=== PATIENT | female | born 1965 | race Caucasian/White ===

== ENCOUNTER → 2022-12-29 | Outpatient (CLI) | payer BC ==
--- NOTE | 2022-12-31 09:02 | MM ---
Reason for Exam: Screening (asymptomatic). Patient History: Menarche at age 11. First Full-Term at age 24. Postmenopausal. Risk Values: Gabriela 5 year model risk: 1.3%. NCI Lifetime model risk: 7.7%. Tissue Density: There are scattered fibroglandular densities. Findings: Analyzed By CAD. No suspicious group of macro calcifications within either breast. No suspicious mass within the left breast. Focal asymmetry demonstrated within the right breast in the upper outer quadrant at anterior depth. Overall Assessment: Incomplete: need additional imaging evaluation, BI-RAD 0 Management: Diagnostic Mammogram of the right breast. A clinical breast exam by your physician is recommended on an annual basis and results should be correlated with mammographic findings. [facility] will attempt to contact patient to return for supplemental views and ultrasound if indicated. Electronically signed and approved by: Travis Mcfadden D.O.
== END | disposition home or self-care (01) ==
LOC: RADMAMWWP 16:19
PROVIDERS: ATTEND Family Medicine
DX: Z12.31 Encounter for screening mammogram for malignant neoplasm of breast (principal); Z78.0 Asymptomatic menopausal state
CPT/HCPCS: 77063; 77067

== ENCOUNTER → 2023-01-14 | Outpatient (CLI) | payer BC ==
--- NOTE | 2023-01-14 11:20 | MM ---
Reason for Exam: Additional evaluation requested from abnormal screening. Last screening mammogram was performed less than 1 month ago. Patient History: Menarche at age 11. First Full-Term at age 24. Postmenopausal. Risk Values: Gabriela 5 year model risk: 1.3%. NCI Lifetime model risk: 7.7%. Prior Study Comparison: 12/29/2022 Bilateral MG 3D screening mammo w/cad, [facility]. Tissue Density: Right: There are scattered fibroglandular densities. Findings: Analyzed By CAD. There is a persistent 5 mm nodular density at the approximate 8:00 position right breast 3 cm from the nipple. Ultrasound is recommended. Overall Assessment: Incomplete: need additional imaging evaluation, BI-RAD 0 Management: Diagnostic Breast Ultrasound of the right breast. A clinical breast exam by your physician is recommended on an annual basis and results should be correlated with mammographic findings. This exam should not preclude additional follow-up of suspicious palpable abnormalities. Results were given to the patient verbally at the time of exam. Electronically signed and approved by: Mor Douglas M.D. Radiologis
--- NOTE | 2023-01-14 12:22 | USB ---
Reason for Exam: Additional evaluation requested from abnormal screening. Patient History: Menarche at age 11. First Full-Term at age 24. Postmenopausal. Risk Values: Gabriela 5 year model risk: 1.3%. NCI Lifetime model risk: 7.7%. Technique: Method: Targeted. Prior Study Comparison: 12/29/2022 Bilateral MG 3D screening mammo w/cad, [facility]. Findings: The lower outer quadrant of the right breast and the retroareolar of the right breast were scanned. Indeterminate hypoechoic lesion at the right 8:00 position measuring 5 mm. Six-month follow-up is advised which is to include both ultrasound and mammography. Overall Assessment: Probably benign, BI-RAD 3 Management: Diagnostic Mammogram of the right breast in 6 months. A clinical breast exam by your physician is recommended on an annual basis and results should be correlated with mammographic findings. This exam should not preclude additional follow-up of suspicious palpable abnormalities. Results were given to the patient verbally at the time of exam. Electronically signed and approved by: Mor Douglas M.D. Radiologis
== END | disposition home or self-care (01) ==
LOC: RADMAMWWP 10:26
PROVIDERS: ATTEND Family Medicine
DX: R92.8 Other abnormal and inconclusive findings on diagnostic imaging of breast (principal); N64.89 Other specified disorders of breast; Z78.0 Asymptomatic menopausal state
CPT/HCPCS: 77061; 77065

== ENCOUNTER → 2023-01-17 | Outpatient (CLI) | payer BC ==
--- NOTE | 2023-01-17 07:30 | MR ---
MR MRCP INDICATION: Patient age:Female; 57 years old; Reason for study: K83.8 common bile duct dilation; [facility]. COMPARISON: CT abdomen and pelvis 12/20/2022. TECHNIQUE: Multi planar, T2-weighted imaging with and without fat saturation and chemical shift imag ing was performed of the abdomen. Then, heavily T2 weighted imaging (half-Fourier acquisition single- shot turbo spin-echo) was utilized in order to study the biliary system. Maximum intensity projectio n images were reconstructed from the original data of the biliary tree on a separate workstation. No Gadolinium given. FINDINGS: MRCP: The intrahepatic ducts have a normal appearance. The common bile duct measures up to 10 mm in size. There is smooth tapering of the common bile duct into the ampulla without filling defect or ob structing mass lesion. The common hepatic duct measures 6 mm in size. The pancreatic duct is normal. The gallbladder appears unremarkable. Abdomen: The spleen, adrenal glands, kidneys, and pancreas have a normal noncontrast appearance. Mild hepatic steatosis demonstrated with dropout of signal on the out of phase imaging. IMPRESSION: 1. Mild common bile duct dilatation with smooth tapering to the ampulla. No filling defect or obstru cting mass lesion. No intrahepatic biliary ductal dilatation. 2. Mild hepatic steatosis.
== END | disposition home or self-care (01) ==
LOC: RADMRIMAIN 06:14
PROVIDERS: ATTEND Family Medicine
DX: K76.0 Fatty (change of) liver, not elsewhere classified (principal); K83.8 Other specified diseases of biliary tract
CPT/HCPCS: 74181

== ENCOUNTER → 2023-08-23 | Outpatient (CLI) | payer BC ==
--- NOTE | 2023-08-23 09:52 | MM ---
Reason for Exam: Follow-up at short interval from prior study. Last screening mammogram was performed 8 month(s) ago. Patient History: Menarche at age 11. First Full-Term at age 24. Postmenopausal. Risk Values: Gabriela 5 year model risk: 1.3%. NCI Lifetime model risk: 7.7%. Prior Study Comparison: 12/29/2022 Bilateral MG 3D screening mammo w/cad, [facility]. 01/14/2023 Right MG 3D work up w/cad RT, [facility]. Tissue Density: Right: There are scattered fibroglandular densities. Findings: Analyzed By CAD. Persistent 5 mm nodular density at the 8:00 position in the right breast. No new suspicious masses. No worrisome calcifications. Overall Assessment: Incomplete: need additional imaging evaluation, BI-RAD 0 Management: Diagnostic Breast Ultrasound of the right breast. A clinical breast exam by your physician is recommended on an annual basis and results should be correlated with mammographic findings. This exam should not preclude additional follow-up of suspicious palpable abnormalities. Results were given to the patient verbally at the time of exam. Note on Gabriela scores and lifetime risk: 1. A Gabriela score greater than 3% is considered moderate risk. If this is the case, consider specialist referral to assess eligibility for a risk reducing agent. If overall lifetime risk for the development of breast cancer is 20% or higher, the patient may qualify for future screening with alternating mammogram and breast MRI. Electronically signed and approved by: Travis Mcfadden D.O.
--- NOTE | 2023-08-23 10:08 | USB ---
Reason for Exam: Follow-up at short interval from prior study. Patient History: Menarche at age 11. First Full-Term at age 24. Postmenopausal. Risk Values: Gabriela 5 year model risk: 1.3%. NCI Lifetime model risk: 7.7%. Technique: Method: Targeted. Prior Study Comparison: 12/29/2022 Bilateral MG 3D screening mammo w/cad, [facility]. 01/14/2023 Right MG 3D work up w/cad RT, [facility]. Findings: The lower outer quadrant of the right breast and the retroareolar of the right breast were scanned. Ultrasound of the right breast from 6-9 o'clock was performed additional evaluation the nipple. Stable hypoechoic lesion at 8:00 3 cm from nipple measuring 0.3 x 0.4 x 0.2 cm. No internal color flow. Most consistent with a cluster of cysts. Overall Assessment: Benign, BI-RAD 2 Management: Screening Mammogram of both breasts in 6 months. A clinical breast exam by your physician is recommended on an annual basis and results should be correlated with mammographic findings. This exam should not preclude additional follow-up of suspicious palpable abnormalities. Results were given to the patient verbally at the time of exam. Electronically signed and approved by: Travis Mcfadden D.O.
== END | disposition home or self-care (01) ==
LOC: RADMAMWWP 09:31
PROVIDERS: ATTEND Family Medicine
DX: R92.322 Mammographic fibroglandular density, left breast (principal); Z78.0 Asymptomatic menopausal state
CPT/HCPCS: 77061; 77065

== ENCOUNTER 2023-12-16 09:16 | Inpatient (IN) | payer BC ==
[2023-12-16] MEDS: methylPREDNISolone SOD SUCCI 125 MG/2 ML VIAL IV STA (10:31)
[2023-12-16] MEDS: SODIUM CHLORIDE 0.9% 1,000 ML IV ONE ×2 (10:31→17:57)
[2023-12-16 10:33] LABS: Basophils % (A) 1 %; Eosinophils # (A) 0.1 k/uL (0-0.7); Eosinophils % (A) 1 %; HCT 41.4 % (34.0-46.0); Lymphocytes # (A) 0.6 k/uL (1.0-4.8); Lymphocytes % (A) 7 %; MCH 32.6 pg (25.0-35.0); MCHC 33.8 g/dL (31.0-37.0); MCV 96.4 fL (80.0-100.0); Monocytes # (A) 0.5 k/uL (0-1.0); Monocytes % (A) 5 %; Neutrophils # (A) 7.8 k/uL (1.3-7.7); Neutrophils % (A) 85 %; Platelet Count 163 k/uL (150-450); RBC 4.29 m/uL (3.80-5.40); RDW 12.8 % (11.5-15.5); WBC 9.2 k/uL (3.8-10.6)
--- NOTE | 2023-12-16 11:12 | XR ---
EXAMINATION TYPE: XR chest 2V DATE OF EXAM: 12/16/2023 10:50 AM CLINICAL INDICATION:Female, 58 years old with history of sob; COMPARISON: Chest radiographs from 02/16/2016 TECHNIQUE: XR chest 2V Frontal and lateral views of the chest. FINDINGS: Lungs/Pleura: There is no evidence of pleural effusion, focal consolidation, or pneumothorax. Pulmonary vascularity: Unremarkable. Heart/mediastinum: Cardiomediastinal silhouette is unremarkable. Musculoskeletal: No acute osseous pathology. IMPRESSION: No acute cardiopulmonary disease/process.
[2023-12-16] MEDS: IPRATROPIUM-ALBUTEROL 3 ML NEB INHALATION STA (11:54)
[2023-12-16 12:07] LABS: ALT 27 U/L (4-34); AST 39 U/L (14-36); African American GFR (CKD) 12 (>60 ml/min/1.73 sqM); Albumin 3.8 g/dL (3.5-5.0); Alkaline Phosphatase 56 U/L (38-126); Anion Gap 13 mmol/L; Blood Urea Nitrogen 61 mg/dL (7-17); Calcium 7.9 mg/dL (8.4-10.2); Carbon Dioxide 23 mmol/L (22-30); Chloride 102 mmol/L (98-107); Glucose 98 mg/dL (74-99); Non-African American GFR(CKD) 10 (>60 ml/min/1.73 sqM); Potassium 3.3 mmol/L (3.5-5.1); Sodium 138 mmol/L (137-145); Total Bilirubin 0.8 mg/dL (0.2-1.3); Total Protein 6.3 g/dL (6.3-8.2)
[2023-12-16] MEDS ORDERED: ACETAMINOPHEN TAB 325 MG TAB PO PRN (12:30)
[2023-12-16] MEDS ORDERED: ONDANSETRON 4 MG/2 ML VIAL IVP PRN (12:30)
[2023-12-16] MEDS ORDERED: NALOXONE 0.4 MG/ML 1 ML VIAL IV PRN (12:30)
--- NOTE | 2023-12-16 12:30 | ED ---
General Adult HPI - General Chief complaint: Shortness of Breath Stated complaint: YANCY Time Seen by Provider: 12/16/23 09:25 Source: patient, RN notes reviewed Mode of arrival: ambulatory Limitations: no limitations - History of Present Illness Initial comments: 58-year-old female presents emergency department chief complaint shortness of breath, fevers chills and bodyaches. Patient states she has been sick for several days. Patient states her significant other was positive for influenza A. Patient states she is a daily smoker. Patient states that she never been diagnosed with COPD. Denies any diarrhea but states that she has been nauseous and some vomiting. She has not been eating drinking well. - Related Data Home Medications Medication Instructions Recorded Confirmed Chlorthalidone [Hygroton] 25 mg PO DAILY 12/16/23 12/16/23 Losartan Potassium [Cozaar] 100 mg PO DAILY 12/16/23 12/16/23 Rosuvastatin [Crestor] 20 mg PO DAILY 12/16/23 12/16/23 Allergies Allergy/AdvReac Type Severity Reaction Status Date / Time No Known Allergies Allergy Verified 12/16/23 12:48 Review of Systems ROS Statement: Those systems with pertinent positive or pertinent negative responses have been documented in the HPI. ROS Other: All systems not noted in ROS Statement are negative. Past Medical History Past Medical History: Hyperlipidemia, Hypertension History of Any Multi-Drug Resistant Organisms: None Reported Past Surgical History: No Surgical Hx Reported Past Psychological History: No Psychological Hx Reported Smoking Status: Current every day smoker Past Alcohol Use History: Occasional Past Drug Use History: Marijuana General Exam Limitations: no limitations General appearance: alert, in no apparent distress Head exam: Present: atraumatic, normocephalic, normal inspection Eye exam: Present: normal appearance, PERRL, EOMI. Absent: scleral icterus, conjunctival injection, periorbital swelling ENT exam: Present: normal exam, normal oropharynx, mucous membranes moist Neck exam: Present: normal inspection, full ROM. Absent: tenderness, m eningismus, lymphadenopathy Respiratory exam: Present: wheezes. Absent: normal lung sounds bilaterally, respiratory distress, rales, rhonchi, stridor Cardiovascular Exam: Present: regular rate, normal rhythm, normal heart sounds. Absent: systolic murmur, diastolic murmur, rubs, gallop, clicks GI/Abdominal exam: Present: soft, normal bowel sounds. Absent: distended, tenderness, guarding, rebound, rigid Course Vital Signs 12/16/23 12/16/23 12/16/23 09:30 09:35 10:16 Temperature 98.7 F 98.3 F Pulse Rate 98 92 Respiratory 24 20 18 Rate Blood Pressure 88/56 118/72 O2 Sat by Pulse 94 L 91 L Oximetry 12/16/23 12/16/23 11:56 12:13 Temperature Pulse Rate 96 100 Respiratory Rate Blood Pressure O2 Sat by Pulse Oximetry EKG Findings - EKG Comments: EKG Findings:: EKG performed at 9: 41 sinus rhythm rate of 93 DE 148 QRS 104 QT/QTc 347/397 - EKG Results: EKG: interpreted by ARIADNED Medical Decision Making - Medical Decision Making Was pt. sent in by a medical professional or institution (, PA, DISTRICT LOSS PREVENTION MANAGER, urgent care, hospital, or usp...) When possible be specific @ -No Did you speak to anyone other than the patient for history (EMS, parent, family, police, friend...)? What history was obtained from this source @ -No Did you review nursing and triage notes (agree or disagree)? Why? @ -I reviewed and agree with nursing and triage notes Were old charts reviewed (outside hosp., previous admission, EMS record, old EKG, old radiological studies, urgent care reports/EKG's, usp records)? Report findings @ -[Reviewed prior laboratory studies Differential Diagnosis (chest pain, altered mental status, abdominal pain women, abdominal pain men, vaginal bleeding, weakness, fever, dyspnea, syncope, headache, dizziness, GI bleed, back pain, seizure, CVA, palpatations, mental health, musculoskeletal)? @ -No differential URI EKG interpreted by me (3pts min.). @ -[As above X-rays interpreted by me (1pt min.). @ -[Chest x-ray shows no evidence of pneumonia, mild COPD changes CT interpreted by me (1pt min.). @ -None done U/S interpreted by me (1pt. min.). @ -None done What testing was considered but not performed or refused? (CT, X-rays, U/S, labs)? Why? @ -None What meds were considered but not given or refused? Why? @ -None Did you discuss the management of the patient with other professionals (professionals i.e. , PA, DISTRICT LOSS PREVENTION MANAGER, lab, RT, psych nurse, social media campaign manager, specialty molder, teacher, emergency communications officer, social work case manager)? Give summary @ -Dr. Maddox for admission Was smoking cessation discussed for >3mins.? @ -[I discussed smoking cessation for greater than 3 minutes. The risk of smoking were discussed with the patient including but not limited to risks of cancer, stroke, coronary artery disease and COPD. Also discussed with patient were multiple methods of quitting smoking. Lastly we discussed the financial cost of smoking. Was critical care preformed (if so, how long)? @ -No Were there social determinants of health that impacted care today? How? (Homelessness, low income, unemployed, alcoholism, drug addiction, transportation, low edu. Level, literacy, decrease access to med. care, detention, rehab)? @ -No Was there de-escalation of care discussed even if they declined (Discuss DNR or withdrawal of care, Hospice)? DNR status @ -No What co-morbidities impacted this encounter? (DM, HTN, Smoking, COPD, CAD, Cancer, CVA, ARF, Chemo, Hep., AIDS, mental health diagnosis, sleep apnea, morbid obesity)? @ -Smoking, COPD Was patient admitted / discharged? Hospital course, mention meds given and route, prescriptions, significant lab abnormalities, going to OR and other pertinent info. @ -[Admitted patient is found to be in acute renal failure with creatinine over 4 patient has no history of this for our records. Patient also found to be hypoxic, most likely has underlying COPD with acute exacerbation. Patient was started on steroids, breathing treatments left consult to pulmonary and nephrology Undiagnosed new problem with uncertain prognosis? @ -No Drug Therapy requiring intensive monitoring for toxicity (Heparin, Nitro, Insulin, Cardizem)? @ -No Were any procedures done? @ -No Diagnosis/symptom? @ -[Acute renal failure, COPD exacerbation, influenza Acute, or Chronic, or Acute on Chronic? @ -Acute Uncomplicated (without systemic symptoms) or Complicated (systemic symptoms)? @ -[Complicated Side effects of treatment? @ -No Exacerbation, Progression, or Severe Exacerbation? @ -COPD exacerbation Poses a threat to life or bodily function? How? (Chest pain, [place], [place], pneumonia, PE, COPD, DKA, ARF, appy, cholecystitis, CVA, Diverticulitis, Homicidal, Suicidal, threat to staff... and all critical care pts) @ -Yes renal failure, hypoxia - Lab Data Result diagrams: 12/16/23 10:12 12/16/23 11:42 Lab Results 12/16/23 12/16/23 12/16/23 Range/Units 10:12 10:12 11:42 WBC 9.2 (3.8-10.6) k/uL RBC 4.29 (3.80-5.40) m/uL Hgb 14.0 (11.4-16.0) gm/dL Hct 41.4 (34.0-46.0) % MCV 96.4 (80.0-100.0) fL MCH 32.6 (25.0-35.0) pg MCHC 33.8 (31.0-37.0) g/dL RDW 12.8 (11.5-15.5) % Plt Count 163 (150-450) k/uL MPV 9.0 Neutrophils % 85 % Lymphocytes % 7 % Monocytes % 5 % Eosinophils % 1 % Basophils % 1 % Neutrophils # 7.8 H (1.3-7.7) k/uL Lymphocytes # 0.6 L (1.0-4.8) k/uL Monocytes # 0.5 (0-1.0) k/uL Eosinophils # 0.1 (0-0.7) k/uL Basophils # 0.0 (0-0.2) k/uL Sodium 138 (137-145) mmol/L Potassium 3.3 L (3.5-5.1) mmol/L Chloride 102 (98-107) mmol/L Carbon Dioxide 23 (22-30) mmol/L Anion Gap 13 mmol/L BUN 61 H (7-17) mg/dL Creatinine 4.39 H (0.52-1.04) mg/dL Est GFR (CKD-EPI)AfAm 12 (>60 ml/min/1.73 sqM) Est GFR (CKD-EPI)NonAf 10 (>60 ml/min/1.73 sqM) Glucose 98 (74-99) mg/dL Calcium 7.9 L (8.4-10.2) mg/dL Total Bilirubin 0.8 (0.2-1.3) mg/dL AST 39 H (14-36) U/L ALT 27 (4-34) U/L Alkaline Phosphatase 56 (38-126) U/L Total Protein 6.3 (6.3-8.2) g/dL Albumin 3.8 (3.5-5.0) g/dL Influenza Type A (PCR) Detected A (Not Detectd) Influenza Type B (PCR) Not Detected (Not Detectd) RSV (PCR) Not Detected (Not Detectd) SARS-CoV-2 (PCR) Not Detected (Not Detectd) Disposition Clinical Impression: Influenza A, Hypoxia, COPD (chronic obstructive pulmonary disease), Acute renal failure Disposition: ADMITTED IP TO THIS HOSP Condition: Poor Referrals: Josep Maddox MD [Primary Care Provider] - 1-2 days Time of Disposition: 12:01
[2023-12-16] MEDS: SODIUM CHLORIDE 0.9% 1,000 ML IV SCH (12:32)
[2023-12-16] MEDS ORDERED: IPRATROPIUM-ALBUTEROL 3 ML NEB INHALATION PRN (12:32)
[2023-12-16] MEDS ORDERED: IPRATROPIUM-ALBUTEROL 3 ML NEB INHALATION SCH (16:00)
[2023-12-16] MEDS: IPRATROPIUM-ALBUTEROL 3 ML NEB INHALATION SCH (17:11)
[2023-12-16] MEDS: methylPREDNISolone SOD SUCCI 125 MG/2 ML VIAL IV SCH (17:57)
--- NOTE | 2023-12-16 18:14 | US ---
EXAMINATION TYPE: US kidneys/renal and bladder DATE OF EXAM: 12/16/2023 COMPARISON: CT CLINICAL INDICATION: Female, 58 years old with history of MARY; MARY EXAM MEASUREMENTS: Right Kidney: 10.1 x 4.1 x 5.3 cm Left Kidney: 9.7 x 4.6 x 4.2 cm Right Kidney: No evidence of hydro . Cortical medullary differentiation is maintained. Left Kidney: No evidence of hydro, lower pole gassed out. Cortical medullary differentiation is maint ained Bladder: Not fully distended to evaluate There is no evidence for hydronephrosis at this point in time. No nephrolithiasis is seen. No ghislaine s are identified. The urinary bladder is anechoic. Bilateral ureteral jets are seen. IMPRESSION: No evidence for obstructive uropathy.
--- NOTE | 2023-12-16 19:08 | P.CNPUL ---
History of Present Illness Consult date: 12/16/23 Reason for consult: dyspnea, COPD Chief complaint: MARY History of present illness: Pleasant 78-year-old female patient presented emergency department because of worsening shortness of breath. The patient was feeling ill for the past 4 to 5 days. She had diminished oral intake. Denied having any nausea or emesis. No diarrhea. However, she had marked diminishment in her oral intake and she has not been eating and drinking well. The patient was feeling sick, tired, and she was having bodyaches. She was feeling feverish in addition. She has also noted some diminished urine output. No falls. No recent antibiotic intake. In the emergency, the patient was found to be quite short of breath and she was having increased chest tightness and wheezing and bronchospasm consistent with COPD exacerbation. She is a chronic smoker. She also tested positive for influenza A. She also was noted to have an acute kidney injury and the patient's creatinine was at 4.3 from a normal baseline approximately a year ago. Her BUN was 61 and the patient's potassium level was at 3.3 with a sodium level of 138. The white cell count is at 9.2 with a hemoglobin of 14 and a platelet count of 163. The rest of the viral panel was negative. LFTs are within normal limits. The chest x-ray was consistent with COPD without any acute abnormalities. The patient Emergency Department was given a liter of IV fluid and the following that she was placed on normal saline at rate of 75 cc an hour. I started the patient on DuoNeb otherwise she was [id number] and IV Solu-Medrol 60 mg every 6 hours. The patient will also be started on Tamiflu. No altered mentation. No pleurisy. No hemoptysis. No angina or palpitations. Her EKG showing a normal sinus rhythm. No acute ST segment elevation or depression. Review of Systems Constitutional: Reports fatigue, Reports poor appetite, Reports weakness Eyes: denies as per HPI, denies blurred vision, denies bulging eye, denies decreased vision, denies diplopia, denies discharge, denies dry eye, denies ir ritation, denies itching, denies pain, denies photophobia, denies loss of peripheral vision, denies loss of vision, denies tunnel vision/blind spots Ears: deny: decreased hearing, ear discharge, earache, tinnitus Ears, nose, mouth and throat: Reports as per HPI Breasts: absent: as per HPI, change in shape, gynecomastia, masses, nipple discharge, pain, skin changes, swelling Cardiovascular: Reports as per HPI, Reports decreased exercise tolerance, Reports dyspnea on exertion, Reports shortness of breath Respiratory: Reports cough with sputum, Reports dyspnea, Reports wheezing Gastrointestinal: Reports as per HPI, Reports loss of appetite Genitourinary: Reports as per HPI Menstruation: Reports as per HPI Musculoskeletal: Reports as per HPI Musculoskeletal: absent: ankle pain, ankle stiffness, ankle swelling, as per HPI, elbow pain, elbow stiffness, elbow swelling, foot pain, foot stiffness, foot swelling, hand pain, hand stiffness, hand swelling, hip pain, hip stiffness, hip swelling, knee pain, knee stiffness, knee swelling, shoulder p ain, shoulder stiffness, shoulder swelling, wrist pain, wrist stiffness, wrist swelling Integumentary: Reports as per HPI Neurological: Reports as per HPI Psychiatric: Reports as per HPI Endocrine: Reports as per HPI Hematologic/Lymphatic: Reports as per HPI Allergic/Immunologic: Reports as per HPI Past Medical History Past Medical History: Hyperlipidemia, Hypertension History of Any Multi-Drug Resistant Organisms: None Reported Past Surgical History: No Surgical Hx Reported Past Psychological History: No Psychological Hx Reported Smoking Status: Current every day smoker Past Alcohol Use History: Occasional Past Drug Use History: Marijuana Medications and Allergies Home Medications Medication Instructions Recorded Confirmed Type Chlorthalidone [Hygroton] 25 mg PO DAILY 12/16/23 12/16/23 History Losartan Potassium [Cozaar] 100 mg PO DAILY 12/16/23 12/16/23 History Rosuvastatin [Crestor] 20 mg PO DAILY 12/16/23 12/16/23 History Allergies Allergy/AdvReac Type Severity Reaction Status Date / Time No Known Allergies Allergy Verified 12/16/23 12:48 Physical Exam Vitals: Vital Signs Temp Pulse Resp BP Pulse Ox 12/16/23 17:12 85 12/16/23 15:54 85 18 103/66 12/16/23 13:00 90 18 97/67 96 12/16/23 12:13 100 12/16/23 11:56 96 12/16/23 10:16 18 12/16/23 09:35 98.3 F 92 20 118/72 91 L 12/16/23 09:30 98.7 F 98 24 88/56 94 L Intake and Output 12/16/23 12/16/23 12/16/23 06:59 14:59 22:59 Other: Weight 83.915 kg General appearance the patient is a mild degree of respiratory distress that she is, comfortable.She is currently on oxygen at 2 L/min nasal cannula with a pulse ox of 96%. Head exam was generally normal. There was no scleral icterus or corneal arcus. Mucous membranes were moist. Neck was supple and without jugular venous distension, thyromegaly, or carotid bruits. Carotids were easily palpable bilaterally. There was no adenopathy. Lung sounds are diminished bilaterally and the patient diffuse expiratory wheezes throughout the lung motta bilaterally Cardiac exam revealed the PMI to be normally situated and sized. The rhythm was regular and no extrasystoles were noted during several minutes of auscultation. The first and second heart sounds were normal and physiologic splitting of the second heart sound was noted. There were no murmurs, rubs, clicks, or gallops. Abdominal exam revealed normal bowel sounds. The abdomen was soft, non-tender, and without masses, organomegaly, or appreciable enlargement of the abdominal aorta. Examination of the extremities revealed easily palpable radial, femoral and pedal pulses. There was no cyanosis, clubbing or edema. Examination of the skin revealed no evidence of significant rashes, suspicious appearing nevi or other concerning lesions. Neurologically, the patient is awake and alert and the patient does not have any focal neurological deficit. Cranial nerves are essentially intact. Results - Laboratory Findings CBC and BMP: 12/16/23 10:12 12/16/23 11:42 ABG WBC 9.2 k/uL (3.8-10.6) 12/16/23 10:12 RBC 4.29 m/uL (3.80-5.40) 12/16/23 10:12 Hgb 14.0 gm/dL (11.4-16.0) 12/16/23 10:12 Hct 41.4 % (34.0-46.0) 12/16/23 10:12 MCV 96.4 fL (80.0-100.0) 12/16/23 10:12 MCH 32.6 pg (25.0-35.0) 12/16/23 10:12 MCHC 33.8 g/dL (31.0-37.0) 12/16/23 10:12 RDW 12.8 % (11.5-15.5) 12/16/23 10:12 Plt Count 163 k/uL (150-450) 12/16/23 10:12 MPV 9.0 12/16/23 10:12 Neutrophils % 85 % 12/16/23 10:12 Lymphocytes % 7 % 12/16/23 10:12 Monocytes % 5 % 12/16/23 10:12 Eosinophils % 1 % 12/16/23 10:12 Basophils % 1 % 12/16/23 10:12 Neutrophils # 7.8 k/uL (1.3-7.7) H 12/16/23 10:12 Lymphocytes # 0.6 k/uL (1.0-4.8) L 12/16/23 10:12 Monocytes # 0.5 k/uL (0-1.0) 12/16/23 10:12 Eosinophils # 0.1 k/uL (0-0.7) 12/16/23 10:12 Basophils # 0.0 k/uL (0-0.2) 12/16/23 10:12 Sodium 138 mmol/L (137-145) 12/16/23 11:42 Potassium 3.3 mmol/L (3.5-5.1) L 12/16/23 11:42 Chloride 102 mmol/L (98-107) 12/16/23 11:42 Carbon Dioxide 23 mmol/L (22-30) 12/16/23 11:42 Anion Gap 13 mmol/L 12/16/23 11:42 BUN 61 mg/dL (7-17) H 12/16/23 11:42 Creatinine 4.39 mg/dL (0.52-1.04) H 12/16/23 11:42 Est GFR (CKD-EPI)AfAm 12 (>60 ml/min/1.73 sqM) 12/16/23 11:42 Est GFR (CKD-EPI)NonAf 10 (>60 ml/min/1.73 sqM) 12/16/23 11:42 Glucose 98 mg/dL (74-99) 12/16/23 11:42 Calcium 7.9 mg/dL (8.4-10.2) L 12/16/23 11:42 Total Bilirubin 0.8 mg/dL (0.2-1.3) 12/16/23 11:42 AST 39 U/L (14-36) H 12/16/23 11:42 ALT 27 U/L (4-34) 12/16/23 11:42 Alkaline Phosphatase 56 U/L (38-126) 12/16/23 11:42 Total Protein 6.3 g/dL (6.3-8.2) 12/16/23 11:42 Albumin 3.8 g/dL (3.5-5.0) 12/16/23 11:42 Influenza Type A (PCR) Detected (Not Detectd) A 12/16/23 10:12 Influenza Type B (PCR) Not Detected (Not Detectd) 12/16/23 10:12 RSV (PCR) Not Detected (Not Detectd) 12/16/23 10:12 SARS-CoV-2 (PCR) Not Detected (Not Detectd) 12/16/23 10:12 Abnormal lab findings: Abnormal Labs 12/16/23 12/16/23 12/16/23 10:12 10:12 11:42 Neutrophils # 7.8 H Lymphocytes # 0.6 L Potassium 3.3 L BUN 61 H Creatinine 4.39 H Calcium 7.9 L AST 39 H Influenza Type A (PCR) Detected A - Diagnostic Findings Chest x-ray: image reviewed Assessment and Plan Plan: Acute exacerbation of COPD with secondary shortness of breath. The patient is actively bronchospastic and wheezy. Acute hypoxic respiratory failure patient is currently on 2 L of oxygen by nasal cannula Acute influenza syndrome, symptomatic for the past 3 to 4 days Acute kidney injury possibly related to intravascular volume depletion and decreased oral intake. The patient also had mentioned diminished urine output. Note that the patient was taking diuretics in the form of chlorthalidone on o utpatient basis and the patient was also maintained on losartan. Hypertension Hyperlipidemia History of smoking Plan Will give the patient an additional liter of saline in the emergency department. Continue maintenance fluids of normal saline at rate of 75 cc an hour Hold diuretics Check UA Will check kidney ultrasound DuoNeb nebs [id number] IV Solu-Medrol Tamiflu Nephrology consultation Monitor renal function Will continue to follow
[2023-12-16] MEDS: OSELTAMIVIR 60 MG/10 ML ORAL SYRINGE PO SCH (22:11)
[2023-12-16] MEDS: HEPARIN SODIUM,PORCINE 5,000 UNIT/ML 1 ML VIAL SQ SCH (22:11)
[2023-12-16 22:42] LABS: Appearance,Urine Cloudy (Clear); Bacteria,Urine Rare /hpf; Bilirubin,Urine Negative (Negative); Blood,Urine Small (Negative); Color,Urine Colorless; Glucose,Urine (UA) Negative (Negative); Ketones,Urine Negative (Negative); Leukocyte Esterase,Urine Negative (Negative); Mucus,Urine Rare /hpf; Nitrite,Urine Negative (Negative); PH, Urine 5.5 (5.0-8.0); Protein,Urine Trace (Negative); RBC,Urine 3 /hpf (0-5); Specific Gravity,Urine 1.011 (1.001-1.035); Squamous Epithelial Cell,Urine 6 /hpf (0-4); Urobilinogen,Urine <2.0 mg/dL (<2.0); WBC,Urine 5 /hpf (0-5)
--- NOTE | 2023-12-17 11:55 | P.NPCON ---
History of Present Illness - Reason for Consult acute renal failure - History of Present Illness Patient is a 58-year-old female with history of hypertension and hyperlipidemia. She is admitted to the hospital with complaints of worsening shortness of breath, increased weakness and fatigue. No significant nausea or vomiting. Patient has had significant body aches. She tested positive for influenza A. No previous history of kidney diseases. Blood pressure was low with systolic in the 80s on initial admission. Patient is maintained on losartan and chlorthalidone at home. Currently maintained on IV fluids. Blood pressure has improved with systolic at 106 currently. Patient states she has voided. Maintained on 3 L of oxygen via nasal cannula. Review of Systems As per HPI Past Medical History Past Medical History: Hyperlipidemia, Hypertension History of Any Multi-Drug Resistant Organisms: None Reported Past Surgical History: No Surgical Hx Reported Past Psychological History: No Psychological Hx Reported Smoking Status: Current every day smoker Past Alcohol Use History: Occasional Past Drug Use History: Marijuana Medications and Allergies Home Medications Medication Instructions Recorded Confirmed Type Chlorthalidone [Hygroton] 25 mg PO DAILY 12/16/23 12/16/23 History Losartan Potassium [Cozaar] 100 mg PO DAILY 12/16/23 12/16/23 History Rosuvastatin [Crestor] 20 mg PO DAILY 12/16/23 12/16/23 History Allergies Allergy/AdvReac Type Severity Reaction Status Date / Time No Known Allergies Allergy Verified 12/16/23 12:48 Physical Exam Vitals: Vital Signs Temp Pulse Pulse Resp BP BP Pulse Ox 12/17/23 08:35 98.1 F 86 16 106/76 97 12/17/23 08:23 78 12/17/23 06:25 98.1 F 82 18 119/76 99 12/16/23 22:12 98.3 F 93 20 95/66 95 12/16/23 20:43 80 12/16/23 20:31 75 12/16/23 17:21 84 12/16/23 17:12 85 12/16/23 15:54 85 18 103/66 12/16/23 13:00 90 18 97/67 96 12/16/23 12:13 100 12/16/23 11:56 96 Patient is awake, comfortable, no acute distress Examination of the heart S1 and S2 Examination of the lungs bilateral breath sounds are heard Abdomen is soft nontender Examination of the lower extremities shows no evidence of edema [place] exam grossly intact Results - Lab Results Most recent lab results Calcium 7.9 mg/dL (8.4-10.2) L 12/16/23 11:42 12/16/23 10:12 12/16/23 11:42 Assessment and Plan Assessment: 1. Acute kidney injury, ATN currently nonoliguric. Etiology is hypotension and underlying infection. Rule out urine retention. Also component of hypovolemia. Check urine analysis. Angiotensin receptor blockers on hold along with diuretics. 2. Hypertension with blood pressure currently low. Losartan and chlorthalidone on hold 3. Influenza A infection 4. Acute exacerbation of COPD 5. Acute hypoxic respiratory failure maintained on oxygen via nasal cannula Plan: Continue with IV fluids Check bladder scan Repeat labs in a.m. Continue to hold losartan and chlorthalidone. Check UA Check ultrasound of the kidneys Thank you for the consultation. We will continue to follow the patient with you during her hospitalization.
--- NOTE | 2023-12-17 12:53 | P.PN ---
Subjective Progress Note Date: 12/17/23 Pleasant 78-year-old female patient presented emergency department because of worsening shortness of breath. The patient was feeling ill for the past 4 to 5 days. She had diminished oral intake. Denied having any nausea or emesis. No diarrhea. However, she had marked diminishment in her oral intake and she has not been eating and drinking well. The patient was feeling sick, tired, and she was having bodyaches. She was feeling feverish in addition. She has also noted some diminished urine output. No falls. No recent antibiotic intake. In the emergency, the patient was found to be quite short of breath and she was having increased chest tightness and wheezing and bronchospasm consistent with COPD exacerbation. She is a chronic smoker. She also tested positive for influenza A. She also was noted to have an acute kidney injury and the patient's creatinine was at 4.3 from a normal baseline approximately a year ago. Her BUN was 61 and the patient's potassium level was at 3.3 with a sodium level of 138. The white cell count is at 9.2 with a hemoglobin of 14 and a platelet count of 163. The rest of the viral panel was negative. LFTs are within normal limits. The chest x-ray was consistent with COPD without any acute abnormalities. The patient Emergency Department was given a liter of IV fluid and the following that she was placed on normal saline at rate of 75 cc an hour. I started the patient on DuoNeb otherwise she was [id number] and IV Solu-Medrol 60 mg every 6 hours. The patient will also be started on Tamiflu. No altered mentation. No pleurisy. No hemoptysis. No angina or palpitations. Her EKG showing a normal sinus rhythm. No acute ST segment elevation or depression. On today's evaluation of 12/17/2023, the patient is feeling well and she is less short of breath bronchospastic and wheezy on today's evaluation. UA was essentially nonsignificant. She remains on IV fluids. She is voiding. No fever or chills. Ultrasound the kidneys was also done and showed no evidence of any hydronephrosis. Nephrology on the case. Awaiting follow-up labs from today. She remains on oxygen at 3 L with a pulse ox of 95%. Objective - Vital Signs Vital signs: Vital Signs Temp 98.1 F 12/17/23 08:35 Pulse 86 03/02/24 08:35 Resp 16 12/17/23 08:35 BP 106/76 12/17/23 08:35 Pulse Ox 97 12/17/23 08:35 FiO2 Intake & Output 12/16/23 12/17/23 12/17/23 18:59 06:59 18:59 Weight 83.915 kg - Exam General appearance the patient is a mild degree of respiratory distress that she is, comfortable.She is currently on oxygen at 2 L/min nasal cannula with a pulse ox of 96%. Head exam was generally normal. There was no scleral icterus or corneal arcus. Mucous membranes were moist. Neck was supple and without jugular venous distension, thyromegaly, or carotid bruits. Carotids were easily palpable bilaterally. There was no adenopathy. Lung sounds are diminished bilaterally and the patient diffuse expiratory wheezes throughout the lung motta bilaterally Cardiac exam revealed the PMI to be normally situated and sized. The rhythm was regular and no extrasystoles were noted during several minutes of auscultation. The first and second heart sounds were normal and physiologic splitting of the second heart sound was noted. There were no murmurs, rubs, clicks, or gallops. Abdominal exam revealed normal bowel sounds. The abdomen was soft, non-tender, and without masses, organomegaly, or appreciable enlargement of the abdominal aorta. Examination of the extremities revealed easily palpable radial, femoral and ped al pulses. There was no cyanosis, clubbing or edema. Examination of the skin revealed no evidence of significant rashes, suspicious appearing nevi or other concerning lesions. Neurologically, the patient is awake and alert and the patient does not have any focal neurological deficit. Cranial nerves are essentially intact. - Labs CBC & Chem 7: 12/16/23 10:12 12/16/23 11:42 Labs: Abnormal Lab Results - Last 24 Hours (Table) 12/16/23 12/16/23 12/16/23 Range/Units 10:12 11:42 22:26 Potassium 3.3 L (3.5-5.1) mmol/L BUN 61 H (7-17) mg/dL Creatinine 4.39 H (0.52-1.04) mg/dL Calcium 7.9 L (8.4-10.2) mg/dL AST 39 H (14-36) U/L Urine Appearance Cloudy H (Clear) Urine Protein Trace H (Negative) Urine Blood Small H (Negative) Ur Squamous Epith Cells 6 H (0-4) /hpf Urine Bacteria Rare H (None) /hpf Urine Mucus Rare H (None) /hpf Influenza Type A (PCR) Detected A (Not Detectd) Assessment and Plan Plan: Acute exacerbation of COPD with secondary shortness of breath. The patient is actively bronchospastic and wheezy. Acute hypoxic respiratory failure patient is currently on 2 L of oxygen by nasal cannula Acute influenza syndrome, symptomatic for the past 3 to 4 days Acute kidney injury possibly related to intravascular volume depletion and decreased oral intake. The patient also had mentioned diminished urine output. Note that the patient was taking diuretics in the form of chlorthalidone on outpatient basis and the patient was also maintained on losartan. Hypertension Hyperlipidemia History of smoking Plan Will give the patient an additional liter of saline in the emergency department. Continue maintenance fluids of normal saline at rate of 75 cc an hour Hold diuretics Check UA is essentially nonspecific Will check kidney ultrasound, nonobstructive and there is no evidence of any hydronephrosis Awaiting labs from today Carol Ann wilder [id number] IV Solu-Medrol Tamiflu Nephrology consultation Monitor renal function Will continue to follow
--- NOTE | 2023-12-17 16:02 | HP ---
HISTORY AND PHYSICAL CHIEF COMPLAINT: Influenza, dehydration, hypoxia, and acute kidney injury. HISTORY OF PRESENT ILLNESS: This is another admission for this 58-year-old female, who presented to the emergency room with achiness and malaise, and tested positive for influenza. Creatinine was 4. Her pulse ox is low at 88. REVIEW OF SYSTEMS: She denied any headache, confusion, change in vision or hearing, cough, hemoptysis, abdominal pain, hematemesis, melena, jaundice, renal failure, hematuria, frequency, urgency, etc. Past medical history, family history, personal and social histories reveal that she is not allergic to any medication. She does smoke and drinks alcohol occasionally. PHYSICAL EXAMINATION: VITAL SIGNS: Normal except for pulse of 101. Temperature is 99. GENERAL: She appeared to be dehydrated. HEAD, EARS, EYES, NOSE, MOUTH, AND THROAT: Normal except for dry mucous membranes. NECK: Supple. CHEST: Clear. CARDIAC: Normal. ABDOMEN: Soft, nontender. EXTREMITIES: Normal. NEUROLOGIC: She is intact. ASSESSMENT: She is admitted to the hospital with diagnoses; 1. Influenza. 2. Dehydration. 3. Acute kidney injury. PLAN: 1. Bedrest. 2. IV fluids. 3. Tamiflu. MMODL / IJN: [id number] /
--- NOTE | 2023-12-17 16:38 | PN ---
PROGRESS NOTE CHIEF COMPLAINT: Influenza with MARY. HISTORY OF PRESENT ILLNESS: This lady is fairly stable and IV fluids continue. Labs are being repeated. PHYSICAL EXAMINATION: CHEST: Clear. CARDIAC: Exam is normal. ABDOMEN: Soft, nontender. IMPRESSION: 1. Influenza. 2. Dehydration. 3. Acute kidney injury. PLAN: Continue with IV fluids. MMODL / IJN: [id number] /
[2023-12-18 13:19] LABS: African American GFR (CKD) 46 (>60 ml/min/1.73 sqM); Anion Gap 13 mmol/L; Blood Urea Nitrogen 36 mg/dL (7-17); Calcium 8.8 mg/dL (8.4-10.2); Carbon Dioxide 22 mmol/L (22-30); Chloride 109 mmol/L (98-107); Glucose 190 mg/dL (74-99); Non-African American GFR(CKD) 40 (>60 ml/min/1.73 sqM); Potassium 3.3 mmol/L (3.5-5.1); Sodium 144 mmol/L (137-145)
[2023-12-18] MEDS: DEXTROSE 5%-0.45% NACL 1,000 ML IV SCH (13:27)
--- NOTE | 2023-12-18 14:43 | P.PN ---
Subjective Patient is seen for follow-up for acute kidney injury. Currently maintained on IV fluids. Tested positive for influenza A. Overall feeling better. Good urine output. No labs available today Objective - Vital Signs Vital signs: Vital Signs Temp 98.3 F 12/18/23 08:01 Pulse 83 12/18/23 12:02 Resp 20 12/18/23 08:01 BP 127/77 12/18/23 08:01 Pulse Ox 94 L 12/18/23 08:01 FiO2 Intake & Output 12/17/23 12/18/23 12/18/23 18:59 06:59 18:59 Weight 83.915 kg Other: Voiding Method Toilet # Voids 2 2 - Exam Patient is awake, comfortable, no acute distress Alert oriented x 3 Examination of the heart S1 and S2 Examination of the lungs bilateral breath sounds are heard Abdomen is soft nontender Examination of lower extremities shows no significant edema [employer] ADMINISTRATOR exam grossly intact - Labs CBC & Chem 7: 12/16/23 10:12 12/18/23 12:51 Labs: Abnormal Lab Results - Last 24 Hours (Table) 12/18/23 Range/Units 12:51 Potassium 3.3 L (3.5-5.1) mmol/L Chloride 109 H (98-107) mmol/L BUN 36 H (7-17) mg/dL Creatinine 1.45 H (0.52-1.04) mg/dL Glucose 190 H (74-99) mg/dL Assessment and Plan Assessment: 1. Acute kidney injury, ATN currently nonoliguric. Etiology is hypotension and underlying infection. Also component of hypovolemia. UA shows trace protein otherwise benign. Angiotensin receptor blockers on hold along with diuretics. 2. Hypertension with blood pressure currently low. Losartan and chlorthalidone on hold 3. Influenza A infection 4. Acute exacerbation of COPD 5. Acute hypoxic respiratory failure maintained on oxygen via nasal cannula Plan: Continue with IV fluids Continue to hold losartan and chlorthalidone. Replace potassium Repeat labs today and in a.m. Decrease IV fluids if patient is able to tolerate oral intake well
--- NOTE | 2023-12-18 17:34 | P.PN ---
Subjective Progress Note Date: 12/18/23 Pleasant 78-year-old female patient presented emergency department because of worsening shortness of breath. The patient was feeling ill for the past 4 to 5 days. She had diminished oral intake. Denied having any nausea or emesis. No diarrhea. However, she had marked diminishment in her oral intake and she has not been eating and drinking well. The patient was feeling sick, tired, and she was having bodyaches. She was feeling feverish in addition. She has also noted some diminished urine output. No falls. No recent antibiotic intake. In the emergency, the patient was found to be quite short of breath and she was having increased chest tightness and wheezing and bronchospasm consistent with COPD exacerbation. She is a chronic smoker. She also tested positive for influenza A. She also was noted to have an acute kidney injury and the patient's creatinine was at 4.3 from a normal baseline approximately a year ago. Her BUN was 61 and the patient's potassium level was at 3.3 with a sodium level of 138. The white cell count is at 9.2 with a hemoglobin of 14 and a platelet count of 163. The rest of the viral panel was negative. LFTs are within normal limits. The chest x-ray was consistent with COPD without any acute abnormalities. The patient Emergency Department was given a liter of IV fluid and the following that she was placed on normal saline at rate of 75 cc an hour. I started the patient on DuoNeb otherwise she was [id number] and IV Solu-Medrol 60 mg every 6 hours. The patient will also be started on Tamiflu. No altered mentation. No pleurisy. No hemoptysis. No angina or palpitations. Her EKG showing a normal sinus rhythm. No acute ST segment elevation or depression. On today's evaluation of 12/17/2023, the patient is feeling well and she is less short of breath bronchospastic and wheezy on today's evaluation. UA was essentially nonsignificant. She remains on IV fluids. She is voiding. No fever or chills. Ultrasound the kidneys was also done and showed no evidence of any hydronephrosis. Nephrology on the case. Awaiting follow-up labs from today. She remains on oxygen at 3 L with a pulse ox of 95%. On today's evaluation of 12/18/2023, the patient is doing well. Less short of breath and less bronchospastic and wheezy compared to yesterday. Her renal function continues to improve and the creatinine is at 1.4 with a BUN of 36 and his sodium level is at 144. She is on Tamiflu. She is on DuoNeb nebulized treatments jujcko-kfc-oosks and IV Solu-Medrol. No altered mentation. No other significant events overnight. Objective - Vital Signs Vital signs: Vital Signs Temp 98.3 F 12/18/23 08:01 Pulse 80 12/18/23 11:47 Resp 20 12/18/23 08:01 BP 127/77 12/18/23 08:01 Pulse Ox 94 L 12/18/23 08:01 FiO2 Intake & Output 12/17/23 12/18/23 12/18/23 18:59 06:59 18:59 Weight 83.915 kg Other: Voiding Method Toilet # Voids 2 2 - Exam General appearance the patient is a mild degree of respiratory distress that she is, comfortable.She is currently on oxygen at 2 L/min nasal cannula with a pulse ox of 96%. Head exam was generally normal. There was no scleral icterus or corneal arcus. Mucous membranes were moist. Neck was supple and without jugular venous distension, thyromegaly, or carotid bruits. Carotids were easily palpable bilaterally. There was no adenopathy. Lung sounds are diminished bilaterally and the patient diffuse expiratory wheezes throughout the lung motta bilaterally Cardiac exam revealed the PMI to be normally situated and sized. The rhythm was regular and no extrasystoles were noted during several minutes of auscultation. The first and second heart sounds were normal and physiologic splitting of the second heart sound was noted. There were no murmurs, rubs, clicks, or gallops. Abdominal exam revealed normal bowel sounds. The abdomen was soft, non-tender, and without masses, organomegaly, or appreciable enlargement of the abdominal aorta. Examination of the extremities revealed easily palpable radial, femoral and pedal pulses. There was no cyanosis, clubbing or edema. Examination of the skin revealed no evidence of significant rashes, suspicious appearing nevi or other concerning lesions. Neurologically, the patient is awake and alert and the patient does not have any focal neurological deficit. Cranial nerves are essentially intact. - Labs CBC & Chem 7: 12/16/23 10:12/18/23 12:51 Assessment and Plan Plan: Acute exacerbation of COPD with secondary shortness of breath. The patient is actively bronchospastic and wheezy. Clinically improving compared to yesterday. She remains on bronchodilators and steroids Acute hypoxic respiratory failure patient is currently on 2 L of oxygen by nasal cannula Acute influenza syndrome, symptomatic for the past 3 to 4 days Acute kidney injury possibly related to intravascular volume depletion and decreased oral intake. The patient also had mentioned diminished urine output. Note that the patient was taking diuretics in the form of chlorthalidone on outpatient basis and the patient was also maintained on losartan. Renal function continues to improve Hypertension Hyperlipidemia History of smoking Plan Clinically stable Continue maintenance fluids of normal saline at rate of 75 cc an hour Renal function continues to improve Carol Ann nebs [id number]-anq-[id number] IV Solu-Medrol, may be able to transition to prednisone burst taper as of tomorrow Tamiflu Nephrology consultation appreciated Monitor renal function Will continue to follow
--- NOTE | 2023-12-18 23:41 | PN ---
PROGRESS NOTE CHIEF COMPLAINT: Influenza, dehydration, and acute kidney injury. HISTORY OF PRESENT ILLNESS: This lady is doing well and feeling fine. Numbers are improving. When she came in, her BUN was 61 with a creatinine of 4.39 and a GFR of 10. PHYSICAL EXAMINATION: VITAL SIGNS: Normal. GENERAL: She is awake and alert. She is slightly pale. CHEST: Clear. CARDIAC: Normal. ABDOMEN: Soft, nontender. IMPRESSION: Dehydration, influenza, and acute kidney injury. PLAN: Increase IV rate and encouraged her to push fluids and follow laboratory studies. MMODL / IJN: [id number] /
[2023-12-19 01:56] VITALS: TEMP 98.3
[2023-12-19] MEDS: OSELTAMIVIR 60 MG/10 ML ORAL SYRINGE PO SCH (08:29)
[2023-12-19 08:32] VITALS: BP 143/75; RESP 20
[2023-12-19 10:16] LABS: African American GFR (CKD) 57 (>60 ml/min/1.73 sqM); Anion Gap 9 mmol/L; Blood Urea Nitrogen 26 mg/dL (7-17); Calcium 8.3 mg/dL (8.4-10.2); Carbon Dioxide 25 mmol/L (22-30); Chloride 107 mmol/L (98-107); Glucose 166 mg/dL (74-99); Non-African American GFR(CKD) 50 (>60 ml/min/1.73 sqM); Potassium 3.6 mmol/L (3.5-5.1); Sodium 141 mmol/L (137-145)
[2023-12-19 12:01] VITALS: PULSE 82
--- NOTE | 2023-12-19 12:05 | P.PN ---
Subjective Patient is seen for follow-up for acute kidney injury. Currently maintained on IV fluids. Tested positive for influenza A. Overall feeling better. Good urine output. Serum creatinine decreased to 1.2 Objective - Vital Signs Vital signs: Vital Signs Temp 98.3 F 12/19/23 07:52 Pulse 82 12/19/23 11:58 Resp 20 12/19/23 07:52 BP 143/75 12/19/23 07:52 Pulse Ox 93 L 12/19/23 08:13 FiO2 Intake & Output 12/18/23 12/19/23 12/19/23 18:59 06:59 18:59 Intake Total 1200 Balance 1200 Intake: Intake, IV Titration 1200 Amount Dextrose 5%-0.45% NaCl 1, 1200 000 ml @ 150 mls/hr IV . Q6H40M [facility] Rx#:[id number] Other: # Voids 3 2 - Exam Patient is awake, comfortable, no acute distress Alert oriented x 3 Examination of the heart S1 and S2 Examination of the lungs bilateral breath sounds are heard Abdomen is soft nontender Examination of lower extremities shows no significant edema [employer] exam grossly intact - Labs CBC & Chem 7: 12/16/23 10:12 12/19/23 09:50 Labs: Abnormal Lab Results - Last 24 Hours (Table) 12/18/23 12/19/23 Range/Units 12:51 09:50 Potassium 3.3 L (3.5-5.1) mmol/L Chloride 109 H (98-107) mmol/L BUN 36 H 26 H (7-17) mg/dL Creatinine 1.45 H 1.21 H (0.52-1.04) mg/dL Glucose 190 H 166 H (74-99) mg/dL Calcium 8.3 L (8.4-10.2) mg/dL Assessment and Plan Assessment: 1. Acute kidney injury, ATN currently nonoliguric. Etiology is hypotension and underlying infection. Also component of hypovolemia. UA shows trace protein otherwise benign. Angiotensin receptor blockers on hold along with diuretics. 2. Hypertension with blood pressure currently low. Losartan and chlorthalidone on hold 3. Influenza A infection 4. Acute exacerbation of COPD 5. Acute hypoxic respiratory failure maintained on oxygen via nasal cannula Plan: Continue to hold losartan and chlorthalidone. Replace potassium Repeat labs today and in a.m. Decrease IV fluids if patient is able to tolerate oral intake well
--- NOTE | 2023-12-19 12:25 | P.PN ---
Subjective Progress Note Date: 12/19/23 Pleasant 78-year-old female patient presented emergency department because of worsening shortness of breath. The patient was feeling ill for the past 4 to 5 days. She had diminished oral intake. Denied having any nausea or emesis. No diarrhea. However, she had marked diminishment in her oral intake and she has not been eating and drinking well. The patient was feeling sick, tired, and she was having bodyaches. She was feeling feverish in addition. She has also noted some diminished urine output. No falls. No recent antibiotic intake. In the emergency, the patient was found to be quite short of breath and she was having increased chest tightness and wheezing and bronchospasm consistent with COPD exacerbation. She is a chronic smoker. She also tested positive for influenza A. She also was noted to have an acute kidney injury and the patient's creatinine was at 4.3 from a normal baseline approximately a year ago. Her BUN was 61 and the patient's potassium level was at 3.3 with a sodium level of 138. The white cell count is at 9.2 with a hemoglobin of 14 and a platelet count of 163. The rest of the viral panel was negative. LFTs are within normal limits. The chest x-ray was consistent with COPD without any acute abnormalities. The patient Emergency Department was given a liter of IV fluid and the following that she was placed on normal saline at rate of 75 cc an hour. I started the patient on DuoNeb otherwise she was ssiaay-oab-giinp and IV Solu-Medrol 60 mg every 6 hours. The patient will also be started on Tamiflu. No altered mentation. No pleurisy. No hemoptysis. No angina or palpitations. Her EKG showing a normal sinus rhythm. No acute ST segment elevation or depression. On today's evaluation of 12/17/2023, the patient is feeling well and she is less short of breath bronchospastic and wheezy on today's evaluation. UA was essentially nonsignificant. She remains on IV fluids. She is voiding. No fever or chills. Ultrasound the kidneys was also done and showed no evidence of any hydronephrosis. Nephrology on the case. Awaiting follow-up labs from today. She remains on oxygen at 3 L with a pulse ox of 95%. On today's evaluation of 12/18/2023, the patient is doing well. Less short of breath and less bronchospastic and wheezy compared to yesterday. Her renal function continues to improve and the creatinine is at 1.4 with a BUN of 36 and his sodium level is at 144. She is on Tamiflu. She is on DuoNeb nebulized treatments oggnnl-dwa-lzwyn and IV Solu-Medrol. No altered mentation. No other significant events overnight. The patient is seen today December 19, 2023 in follow-up on the regular medical floor. She is currently sitting up in bed. Awake and alert in no acute distress. She is maintaining O2 saturations in the 90s on room air. She is afebrile. Hemodynamically stable. Feeling nearly back to her baseline. She is continued on Tamiflu for her influenza A infection. She is continued on DuoNeb ventilations, Solu-Medrol. Heparin for DVT prophylaxis. Sodium 141. Potassium 3.6. Bicarb 25. BUN 26. Creatinine 1.21. Glucose 166. Objective - Vital Signs Vital signs: Vital Signs Temp 98.3 F 12/19/23 07:52 Pulse 82 12/19/23 11:58 Resp 20 12/19/23 07:52 BP 143/75 12/19/23 07:52 Pulse Ox 93 L 12/19/23 08:13 FiO2 Intake & Output 12/18/23 12/19/23 12/19/23 18:59 06:59 18:59 Intake Total 1200 Balance 1200 Intake: Intake, IV Titration 1200 Amount Dextrose 5%-0.45% NaCl 1, 1200 000 ml @ 70 mls/hr IV . [id number] [facility] Rx#:[id number] Other: # Voids 3 2 # Bowel Movements 1 - Exam GENERAL EXAM: Alert, pleasant 58-year-old female, on room air, comfortable in no apparent distress. HEAD: Normocephalic. EYES: Normal reaction of pupils, equal size. NOSE: Clear with pink turbinates. THROAT: No erythema or exudates. NECK: No masses, no JVD. CHEST: No chest wall deformity. LUNGS: Equal air entry with faint end expiratory wheeze, diminished. CVS: S1 and S2 normal with no audible murmur, regular rhythm. ABDOMEN: No hepatosplenomegaly, normal bowel sounds, no guarding or rigidity. SPINE: No scoliosis or deformity SKIN: No rashes CENTRAL NERVOUS SYSTEM: No focal deficits, tone is normal in all 4 extremities. EXTREMITIES: There is no peripheral edema. No clubbing, no cyanosis. Peripheral pulses are intact. - Labs CBC & Chem 7: 12/16/23 10:12 12/19/23 09:50 Labs: Abnormal Lab Results - Last 24 Hours (Table) 12/18/23 12/19/23 Range/Units 12:51 09:50 Potassium 3.3 L (3.5-5.1) mmol/L Chloride 109 H (98-107) mmol/L BUN 36 H 26 H (7-17) mg/dL Creatinine 1.45 H 1.21 H (0.52-1.04) mg/dL Glucose 190 H 166 H (74-99) mg/dL Calcium 8.3 L (8.4-10.2) mg/dL Assessment and Plan Assessment: Acute exacerbation of COPD with secondary shortness of breath. She remains on bronchodilators and steroids Acute hypoxic respiratory failure patient is currently on room air Acute influenza syndrome, remains on Tamiflu Acute kidney injury possibly related to intravascular volume depletion and decreased oral intake. The patient also had mentioned diminished urine output. Note that the patient was taking diuretics in the form of chlorthalidone on outpatient basis and the patient was also maintained on losartan. Renal function continues to improve Hypertension Hyperlipidemia History of smoking Plan: The patient was seen and evaluated Stable and on room air Medications and labs reviewed Renal function continues to improve Home once cleared by nephrology Complete a prednisone taper Continue bronchodilators Follow-up in our office in 1 week This patient was seen independently by the pulmonary nurse practitioner addressing pulmonary issues I have personally seen and examined the patient, performed the documentation and the assessment and plan as written. Number of minutes spent on the visit: 24.
--- NOTE | 2023-12-19 21:05 | DS ---
DISCHARGE SUMMARY CHIEF COMPLAINT: Gastroenteritis, influenza, nausea, and vomiting. HISTORY OF PRESENT ILLNESS AND PHYSICAL EXAMINATION: Details of this lady's history and physical can be found in the initial workup. LABORATORY STUDIES: While she was in the hospital, she had laboratory studies, details of which can be found in the laboratory section of her chart. COURSE IN THE HOSPITAL: After admission, she was placed on bedrest and started on intravenous fluids and rehydrated. She is followed by Nephrology. Renal function quickly returned to normal and she was doing well without any fever and chills, nausea, vomiting, etc. and felt that she could go home on the 4th. She will follow up in the office and this should go on the face she does well. FINAL DIAGNOSES: 1. Viral gastroenteritis. 2. Influenza. 3. Dehydration. 4. Acute kidney injury. OPERATIONS: None. CONSULTATIONS: Nephrology. She is improved. ADOLFO / SHAJI: [id number] /
--- NOTE | 2023-12-20 05:53 | PN ---
PROGRESS NOTE CHIEF COMPLAINT: Influenza, dehydration, and acute kidney injury. HISTORY OF PRESENT ILLNESS: This lady is doing well and her numbers are coming down nicely. She is not nauseated and she is feeling well. PHYSICAL EXAMINATION: CHEST: Clear. CARDIAC: Normal. ABDOMEN: Soft, nontender. Bowel sounds are present. IMPRESSION: 1. Influenza. 2. Dehydration. 3. Hypokalemia. 4. Acute kidney injury. PLAN: Probably home today. MMODL / IJN: [id number] /
== END 2023-12-19 12:58 | disposition home or self-care (01) | DRG 193 ==
LOC: EC 09:16 → 4SSUR 13:13
PROVIDERS: ADMIT Family Medicine; ATTEND Family Medicine
DX: J10.1 Influenza due to other identified influenza virus with other respiratory manifestations (principal); J96.01 Acute respiratory failure with hypoxia; N17.0 Acute kidney failure with tubular necrosis; J44.1 Chronic obstructive pulmonary disease with (acute) exacerbation; J10.2 Influenza due to other identified influenza virus with gastrointestinal manifestations; Z11.52 Encounter for screening for COVID-19; E86.9 Volume depletion, unspecified; I95.9 Hypotension, unspecified; E78.5 Hyperlipidemia, unspecified; E86.0 Dehydration; E86.1 Hypovolemia; E87.6 Hypokalemia; I10 Essential (primary) hypertension; F17.210 Nicotine dependence, cigarettes, uncomplicated; Z79.899 Other long term (current) drug therapy
CPT/HCPCS: 36415; 71046; 76770; 80048; 80053; 81001; 85025; 87636; 93005; 94640; 94760; 96361; 96372; 96374; 96376; 99285; 99406

== ENCOUNTER → 2025-04-29 | Outpatient (CLI) | payer OTHER, BC ==
--- NOTE | 2025-04-30 08:31 | MM ---
Reason for Exam: Additional evaluation requested from prior study. Last mammogram was performed 2 year(s) and 4 month(s) ago. Patient History: Menarche at age 11. First Full-Term at age 24. Postmenopausal. Risk Values: Gabriela 5 year model risk: 1.4%. NCI Lifetime model risk: 7.4%. Prior Study Comparison: 12/29/2022 Bilateral MG 3D screening mammo w/cad, [facility]. 01/14/2023 Right US breast workup limited RT, [facility]. 01/14/2023 Right MG 3D work up w/cad RT, [facility]. 08/23/2023 Right US breast limited RT, [facility]. 08/23/2023 Right MG 3D diag mammo w/cad RT, [facility]. Tissue Density: The breasts are heterogeneously dense, which may obscure small masses. Findings: Analyzed By CAD. No evidence for mass or distortion. No suspicious calcifications. Overall Assessment: Negative, BI-RAD 1 Management: Screening Mammogram of both breasts in 1 year. . Results were given to the patient verbally at the time of exam. Patient should continue monthly self-breast exams. A clinical breast exam by your physician is recommended on an annual basis. This exam should not preclude additional follow-up of suspicious palpable abnormalities. Note on Gabriela scores and lifetime risk: 1. A Gabriela score greater than 3% is considered moderate risk. If this is the case, consider specialist referral to assess eligibility for a risk reducing agent. 2. If overall lifetime risk for the development of breast cancer is 20% or higher, the patient may qualify for future screening with alternating mammogram and breast MRI. [facility], , 04/30/2025 8:28 AM. Electronically signed and approved by: Mor Douglas M.D. Radiologis
== END | disposition home or self-care (01) ==
LOC: RADMAMWWP 14:36
PROVIDERS: ATTEND Family Medicine
DX: R92.8 Other abnormal and inconclusive findings on diagnostic imaging of breast (principal); R92.333 Mammographic heterogeneous density, bilateral breasts; Z78.0 Asymptomatic menopausal state
CPT/HCPCS: 77062; 77066